=== PATIENT | male | born 1995 | race Hispanic/Latino ===

== ENCOUNTER 2025-10-27 17:58 | Emergency (ER) | payer SELFPAY ==
[2025-10-27 18:03] VITALS: BP 148/91
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
[2025-10-27] MEDS: MOTRIN 600 MG PO (20:32)
== END 2025-10-27 20:40 | disposition home or self-care (01) ==
LOC: EMR 17:58
PROVIDERS: EMERGENCY PHYSICIAN Emergency Medicine
DX: S80.01XA Contusion of right knee, initial encounter (principal); R51.9 Headache, unspecified; V49.40XA Driver injured in collision with unspecified motor vehicles in traffic accident, initial encounter; Y92.410 Unspecified street and highway as the place of occurrence of the external cause; R03.0 Elevated blood-pressure reading, without diagnosis of hypertension
CPT/HCPCS: 99283; 29505; 73564